=== PATIENT | male | born 1980 | race Caucasian/White ===

== ENCOUNTER 2018-11-05 11:37 | Emergency (ER) | payer SELFPAY ==
[~2018-11-05] VITALS: Ht 175.3 cm; Wt 95.3 kg
[~2018-11-05 11:37] MED LIST: [UNRECOGNIZED DRUG - OTHER]
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
[2018-11-05] MEDS ORDERED: ACETAMINOPHEN ES 500 MG TABLET ONE (11:59)
[2018-11-05] MEDS ORDERED: ACETAMINOPHEN 325 MG TABLET PO ONE (12:00)
--- NOTE | 2018-11-05 12:00 | NUR ---
PT TAKEN TO RADIOLOGY VIA [facility]
--- NOTE | 2018-11-05 12:36 | NUR ---
PT BACK FROM RADIOLOGY. STATES PAIN IS A LITTLE WORSE. PAIN MED GIVEN.
--- NOTE | 2018-11-05 13:12 | NUR ---
Patient discharged to home in stable condition. Written and verbal after care instructions given. Patient verbalizes understanding of instruction.
[2018-11-05 13:16] VITALS: BP 130/55
== END 2018-11-05 13:05 | disposition home or self-care (01) ==
LOC: ER 11:38
DX: S09.8XXA Other specified injuries of head, initial encounter (principal); M54.2 Cervicalgia; M25.521 Pain in right elbow; M25.561 Pain in right knee; M25.551 Pain in right hip; G47.30 Sleep apnea, unspecified; Z88.0 Allergy status to penicillin; W20.8XXA Other cause of strike by thrown, projected or falling object, initial encounter; Y93.89 Activity, other specified; Y92.89 Other specified places as the place of occurrence of the external cause; Y99.8 Other external cause status
CPT/HCPCS: 70450-TC; 72125-TC; 73080-TC; 73502; 73564-TC